=== PATIENT | female | born 1975 | race Caucasian/White ===

== ENCOUNTER → 2016-11-14 | Outpatient (CLI) | payer OTHER | LOC: MC.RAD 10:10 | DX: Z12.31 Encounter for screening mammogram for malignant neoplasm of breast (principal) ==

== ENCOUNTER → 2017-11-15 | Outpatient (CLI) | payer OTHER | LOC: MC.RAD 13:35 | DX: Z12.31 Encounter for screening mammogram for malignant neoplasm of breast (principal) ==

== ENCOUNTER → 2018-12-12 | Outpatient (CLI) | payer BC | LOC: MC.RAD 13:59 | DX: Z12.31 Encounter for screening mammogram for malignant neoplasm of breast (principal) ==

== ENCOUNTER → 2020-01-15 | Outpatient (CLI) | payer BC | LOC: MC.RAD 07:20 | DX: Z12.31 Encounter for screening mammogram for malignant neoplasm of breast (principal); N60.02 Solitary cyst of left breast ==

== ENCOUNTER → 2021-01-20 | Outpatient (CLI) | payer BC | LOC: MC.RAD 10:06 | DX: Z12.31 Encounter for screening mammogram for malignant neoplasm of breast (principal) ==

== ENCOUNTER → 2022-01-25 | Outpatient (CLI) | payer BC | LOC: MC.RAD 10:30 | DX: Z12.31 Encounter for screening mammogram for malignant neoplasm of breast (principal) ==

== ENCOUNTER → 2023-01-27 | Outpatient (CLI) | payer BC | LOC: MC.RAD 06:52 | DX: Z12.31 Encounter for screening mammogram for malignant neoplasm of breast (principal) ==

== ENCOUNTER → 2024-01-29 | Outpatient (CLI) | payer BC | LOC: MC.RAD 08:00 → COL.RAD 08:00 | DX: Z12.31 Encounter for screening mammogram for malignant neoplasm of breast (principal) ==